=== PATIENT | male | born 1945 | race Caucasian/White ===

== ENCOUNTER 2023-09-15 05:57 | Day surgery (SDC) | payer MEDICARE, OTHER ==
[2023-09-14 11:06] LABS: BASOPHILS # (AUTO) 0.1 X10'3 (0-0.2); BASOPHILS % (AUTO) 0.7 % (0-1); EOSINOPHILS # (AUTO) 0.1 X10'3 (0-0.9); EOSINOPHILS % (AUTO) 1.8 % (0-6); HEMATOCRIT 47.2 % (42.0-52.0); HEMOGLOBIN 15.5 g/dl (14.0-17.9); LYMPHOCYTES # (AUTO) 1.6 X10'3 (1.1-4.8); LYMPHOCYTES % (AUTO) 24.1 % (21-51); MEAN CORPUSCULAR HEMOGLOBIN 28.3 PG (27.0-31.0); MEAN CORPUSCULAR HGB CONC 32.9 g/dL (33.0-36.5); MEAN PLATELET VOLUME 8.6 FL (7.4-10.4); MONOCYTES # (AUTO) 1.2 X10'3 (0-0.9); MONOCYTES % (AUTO) 16.9 % (2-12); NEUTROPHILS # (AUTO) 3.9 X10'3 (1.8-7.7); NEUTROPHILS % (AUTO) 56.5 % (42-75); PLATELET COUNT 145 X10'3 (140-440); RED BLOOD COUNT 5.48 X10'6 (4.70-6.10); RED CELL DISTRIBUTION WIDTH 13.4 % (11.5-14.5); WHITE BLOOD COUNT 6.8 X10'3 (4.5-11.0)
[2023-09-14 11:11] LABS: ALBUMIN 3.6 G/DL (3.4-5.0); ANION GAP 6 (8-16); BLOOD UREA NITROGEN 18 MG/DL (7-18); BUN/CREATININE RATIO 15.5 (10.0-20.0); CALCIUM 9.3 MG/DL (8.5-10.1); CHLORIDE 106 MMOL/L (99-107); CREATININE 1.16 MG/DL (0.60-1.10); GLUCOSE 75 MG/DL (70-104); POTASSIUM 3.9 MMOL/L (3.5-5.1); SODIUM 142 MMOL/L (135-145); TOTAL CARBON DIOXIDE 29.8 MMOL/L (24-32); eGFR 61 ML/MIN
[2023-09-14 11:52] LABS: TOTAL CELLS COUNTED 100
[2023-09-14 11:53] LABS: PLATELET ESTIMATE NORMAL
[2023-09-14 11:58] LABS: APTT 26 SECONDS (22-32); INR 1.1 INR; PROTHROMBIN TIME 11.4 SECONDS (9.0-12.0)
[2023-09-15] VITALS (14 sets, daily range): BP systolic 102–134; BP diastolic 46–61; PULSE 53–65; RESP 10–17; TEMP 97.8; O2SAT 94–97
[~2023-09-15] VITALS: Ht 175.3 cm; Wt 74.7 kg
[~2023-09-15 05:57] MED LIST: ATOR10TA70 PO; CLOP75TA15 PO; LOP25T PO; PANT-47 PO; SILO8CAP2 PO
[2023-09-15] MEDS: diphenhydrAMINE 25mg capsule PO PRN (07:12)
[2023-09-15] MEDS: normal saline 1,000 ML IV SCH (07:13)
[2023-09-15] MEDS: LORazepam 0.5 MG tablet PO PRN (07:13)
[2023-09-15] MEDS ORDERED: OMEP20CA16 PO (07:35)
[2023-09-15] MEDS ORDERED: FLUT16SP2 BOTHNARES (07:35)
[2023-09-15] MEDS ORDERED: KEN0.1O TOP (07:35)
[2023-09-15] MEDS ORDERED: OMEG-43 PO (07:35)
[2023-09-15] MEDS ORDERED: CHOL100046 PO (07:35)
[2023-09-15] MEDS ORDERED: ASPI-1265 PO (07:35)
[2023-09-15] MEDS ORDERED: ATOR20TA66 PO (07:35)
[2023-09-15] MEDS ORDERED: NITR0.4T48 (07:35)
[2023-09-15] MEDS ORDERED: iohexol 350 MG/ML 50ML vial IV ONE (07:43)
[2023-09-15] MEDS ORDERED: verapamil 2.5 mg/ml inj IV ONE (07:43)
[2023-09-15] MEDS ORDERED: LIDOcaine 1% (10mg/ml) 2ml vial ONE (07:43)
[2023-09-15] MEDS ORDERED: heparin 1,000unit/ml 10ml vial 10 ML ONE (07:43)
[2023-09-15] MEDS ORDERED: midazolam 1 mg/ML 2ml injection ONE (07:43)
[2023-09-15] MEDS ORDERED: fentaNYL/PF 50MCG/1 ML 2ML syringe ONE (07:43)
[2023-09-15] MEDS ORDERED: nitroGLYCERIN 500mcg/5mL D5W 5 ML IV ONE (07:44)
[2023-09-15] MEDS ORDERED: iohexol 350MG/ML 100ml bottle IV ONE ×2 (07:44→08:44)
[2023-09-15] MEDS ORDERED: pneumococcal 23-VAL P-sac vacc 25 mcg/0.5ml vial IMVAC ONE (08:15)
[2023-09-15] MEDS ORDERED: normal saline 1,000 ML IV ONE (09:44)
[2023-09-15 15:28] LABS: ISTAT Hct ART 44 %PCV (42-52); ISTAT O2 SATURATION ARTERIAL 91 % (95-98); ISTAT SOURCE ART
[2023-09-16 05:56] LABS: ISTAT HGB MIX 14.6 g/dl (14.0-17.9); ISTAT Hct MIX 43 %PCV (42-52); ISTAT O2 SATURATION MIX VENOUS 68 % (60-80); ISTAT SOURCE VEN
== END 2023-09-15 15:00 | disposition home or self-care (01) ==
LOC: SSTAY O 05:57
PROVIDERS: ATTEND Internal Medicine Cardiovascular Disease
DX: I35.0 Nonrheumatic aortic (valve) stenosis (principal); I25.10 Atherosclerotic heart disease of native coronary artery without angina pectoris; E78.5 Hyperlipidemia, unspecified; Z79.82 Long term (current) use of aspirin; Z79.899 Other long term (current) drug therapy; Z95.5 Presence of coronary angioplasty implant and graft; Z23 Encounter for immunization; Z90.89 Acquired absence of other organs; Z98.890 Other specified postprocedural states; Z80.1 Family history of malignant neoplasm of trachea, bronchus and lung
CPT/HCPCS: 76937; 80048; 82803; 85014; 85025; 85610; 85730; 90732; 93005; 93460; 99152; 99153; A6258; J1644; J2250; J3010; J3490; J7030; Q0163; Q9967; 85007; A6402; C1725; C1751; C1894

== ENCOUNTER 2024-09-19 08:59 | Day surgery (SDC) | payer MEDICARE, OTHER ==
[2024-09-18 13:35] LABS: BASOPHILS # (AUTO) 0.1 X10'3 (0-0.2); BASOPHILS % (AUTO) 0.9 % (0-1); EOSINOPHILS # (AUTO) 0.1 X10'3 (0-0.9); EOSINOPHILS % (AUTO) 1.8 % (0-6); HEMATOCRIT 44.5 % (42.0-52.0); HEMOGLOBIN 14.6 g/dl (14.0-17.9); LYMPHOCYTES # (AUTO) 1.8 X10'3 (1.1-4.8); LYMPHOCYTES % (AUTO) 27.8 % (21-51); MEAN CORPUSCULAR HEMOGLOBIN 27.6 PG (27.0-31.0); MEAN CORPUSCULAR HGB CONC 32.7 g/dL (33.0-36.5); MEAN CORPUSCULAR VOLUME 84.4 FL (78-98); MEAN PLATELET VOLUME 8.7 FL (7.4-10.4); MONOCYTES % (AUTO) 15.2 % (2-12); NEUTROPHILS # (AUTO) 3.6 X10'3 (1.8-7.7); NEUTROPHILS % (AUTO) 54.3 % (42-75); PLATELET COUNT 162 X10'3 (140-440); RED BLOOD COUNT 5.27 X10'6 (4.70-6.10); RED CELL DISTRIBUTION WIDTH 13.6 % (11.5-14.5); WHITE BLOOD COUNT 6.6 X10'3 (4.5-11.0)
[2024-09-18 13:52] LABS: APTT 26 SECONDS (22-32); INR 1.1 INR; PROTHROMBIN TIME 11.1 SECONDS (9.0-12.0)
[2024-09-18 13:58] LABS: ALBUMIN 3.5 G/DL (3.4-5.0); ANION GAP 4 (8-16); BLOOD UREA NITROGEN 16 MG/DL (7-18); BUN/CREATININE RATIO 14.4 (10.0-20.0); CALCIUM 8.9 MG/DL (8.5-10.1); CHLORIDE 107 MMOL/L (99-107); CREATININE 1.11 MG/DL (0.60-1.10); GLUCOSE 72 MG/DL (70-104); POTASSIUM 4.2 MMOL/L (3.5-5.1); SODIUM 143 MMOL/L (135-145); TOTAL CARBON DIOXIDE 31.6 MMOL/L (24-32); eGFR 64 ML/MIN
[2024-09-18 14:50] LABS: PLATELET ESTIMATE NORMAL; TOTAL CELLS COUNTED 100
[~2024-09-19] VITALS: Ht 175.3 cm; Wt 73.2 kg
[2024-09-19] VITALS (12 sets, daily range): BP systolic 130–179; BP diastolic 56–82; PULSE 49–78; RESP 12–18; TEMP 97.4; O2SAT 96–100
[~2024-09-19 08:59] MED LIST changes: +ASPI-1265 PO; -ATOR10TA70 PO; +ATOR20TA66 PO; +CHOL100046 PO; -CLOP75TA15 PO; +FLUT16SP2 BOTHNARES; +KEN0.1O TOP; +NITR0.4T48; +OMEG-43 PO; +OMEP20CA16 PO; -PANT-47 PO
--- NOTE | 2024-09-19 09:25 | ELECTROCARDIOGRAPH REPORT ---
[facility] Test Date: 2024-09-19 Test Time: 09:22:53 Pat Name: BOLA PHIPPS Department: [facility] Patient ID: [facility]-[id number] Room: Gender: M Head Of Digital: : 1945 Requested By: SARAN PRECIADO Order Number: [id number] Reading MD: Dr. MICHAEL Preciado Measurements Intervals [place] Rate: 49 P: 86 CO: 187 QRS: 86 QRSD: 105 T: 49 QT: 441 QTc: 399 Interpretive Statements Sinus bradycardia Borderline right axis deviation Probable left ventricular hypertrophy ST elevation, consider anterior injury Electronically Signed On 09-19-2024 17:37:[address] MICHAEL Preciado Please click the below link to view image of tracing.
[2024-09-19] MEDS ORDERED: METO25TA6 PO (09:39)
[2024-09-19] MEDS ORDERED: CALC-1370 PO (09:47)
[2024-09-19] MEDS ORDERED: DOCU100C40 PO (09:47)
[2024-09-19] MEDS ORDERED: KEN0.1O TOP (09:47)
[2024-09-19] MEDS ORDERED: KETOCONAZOLE ×2 (09:47)
[2024-09-19] MEDS ORDERED: VITAMIN C GUMMIES PO (09:47)
[2024-09-19] MEDS ORDERED: iohexol 350 MG/ML 50ML vial IV ONE (10:00)
[2024-09-19] MEDS ORDERED: LIDOcaine 1% (10mg/ml) 2ml vial ONE (10:00)
[2024-09-19] MEDS ORDERED: nitroGLYCERIN 500mcg/5mL D5W 5 ML IV ONE (10:00)
[2024-09-19] MEDS ORDERED: iohexol 350MG/ML 100ml bottle IV ONE (10:00)
[2024-09-19] MEDS ORDERED: verapamil 2.5 mg/ml inj IV ONE (10:00)
[2024-09-19] MEDS ORDERED: heparin 1,000unit/ml 10ml vial 10 ML ONE (10:00)
[2024-09-19] MEDS: diphenhydrAMINE 25mg capsule PO PRN (10:11)
[2024-09-19] MEDS: normal saline 1,000 ML IV SCH (10:12)
[2024-09-19] MEDS: LORazepam 0.5 MG tablet PO PRN (10:12)
[2024-09-19] MEDS ORDERED: midazolam 1 mg/ML 2ml injection ONE (10:16)
[2024-09-19] MEDS ORDERED: fentaNYL/PF 50MCG/1 ML 2ML syringe ONE (10:16)
[2024-09-19] MEDS ORDERED: LIDOcaine 1% 30ml preserv. free vial ONE (11:06)
[2024-09-19] MEDS ORDERED: heparin 1,000 UNITS/NS 500ml 500 ML ONE (11:07)
[2024-09-19] MEDS ORDERED: hydrALAZINE 20mg/ml inj. ONE (11:52)
[2024-09-19 11:53] LABS: ISTAT HGB ART 14.6 g/dl (14.0-17.9); ISTAT Hct ART 43 %PCV (42-52); ISTAT O2 SATURATION ARTERIAL 90 % (95-98); ISTAT SOURCE ART
[2024-09-19] MEDS ORDERED: normal saline 1000ml 1,000 ML IV SCH (12:30)
[2024-09-19] MEDS ORDERED: HYDROcodone/acetaminophen 5mg/325mg tablet PO PRN (13:50)
[2024-09-19] MEDS: HYDROcodone/acetaminophen 10/325mg tab PO PRN (13:56)
[2024-09-20 06:27] LABS: ISTAT HGB MIX 14.6 g/dl (14.0-17.9); ISTAT Hct MIX 43 %PCV (42-52); ISTAT O2 SATURATION MIX VENOUS 62 % (60-80); ISTAT SOURCE BLNK
--- NOTE | 2024-09-20 08:37 | CARDIOLOGY REPORT ---
DATE OF SERVICE: 09/19/2024 DICTATING PHYSICIAN: MICHAEL Ely MD CARDIAC CATH EVALUATION GENDER: Male. AGE: 79 years. HEIGHT: 175 cm. WEIGHT: 73.2 kg. BODY SURFACE AREA: 1.88 cm2. PRIMARY PHYSICIAN: Dr. Carlos Michelle [place], [place] BACK END ARCHITECT: MICHAEL Ely MD INDICATION: The patient is an 79-year-old male with history of hyperlipidemia, carotid disease, CAD, status post stenting with aortic stenosis. The patient had PTCA stenting of the OM with 2.5 x 12 CHUN stent back on 03/26/2015. The patient's echocardiogram from 08/16/2024, EF of 60-65%, aortic valve area 0.8 cm2 with peak/mean gradient greater than 67/38 mmHg. After discussing risks, benefits and alternative options, the patient prefers to have definitive coronary angiography. Risks, benefits, and alternative options were discussed, informed consent was obtained. PROCEDURE TECHNIQUE: Right radial access was tried, but radial . Ultrasound did not show a good-sized artery, hence the access was not even attempted. Changed to right femoral access. Successful femoral arterial access. Post-procedure access site hemostasis secured with manual compression Followed by [facility] The patient tolerated the procedure well. The patient had a right heart catheterization, right antecubital approach, a 6-Urdu sheath. Post-procedure access site hemostasis secured with manual compression. the patient tolerated the procedure well. COMPLICATIONS: None. PROCEDURES DONE: * Ultrasound-guided right femoral artery visualization and access. * Right heart catheterization. * Left heart catheterization. * LVG. * Coronary cineangiography. * Right femoral arteriogram. * Conscious sedation time of 60 minutes. FINDINGS: HEMODYNAMICS: Aortic systolic 121, diastolic 39, aortic mean pressure of 60 mmHg, LVEDP of 23 mmHg. There is a mean gradient of 28.7 mmHg across the aortic valve. Aortic valve area 0.87 cm2. LEFT VENTRICULOGRAM: Overall, left ventricular systolic function normal with LV ejection fraction of 65-70%. CORONARY CINEANGIOGRAPHY: Left main coronary artery is a large caliber vessel arising from the left aortic sinus with minimal irregularities. LAD is a medium caliber vessel arising at the bifurcation of the left main coronary artery and courses through the anterior intraventricular groove and ends by wrapping around the apex. The LAD has areas of 10-20% narrowing from its diagonal. OM is 2.25 mm caliber vessel with mild luminal irregularities. Diagonal 2 is 1.5 mm caliber, ostial 30% narrowing. Circumflex artery is a large caliber dominant vessel arising at the bifurcation of the left main coronary artery, courses through the left AV groove. Circumflex artery has proximal one-third of 60% narrowing, which is not significantly different from the prior angiogram about a year ago. OM1 is 2 mm caliber vessel. OM1 stent is widely patent. After that, OM divides into 2 divisions and the inferior division has about 40% narrowing. After this, the circumflex artery continues in left AV groove. Stent in the OM one is patent.. OM2 is 1.75. After that, it continues as PDA. , which is 2 mm caliber with mild luminal irregularities. Right coronary artery is a small nondominant vessel arising from right coronary sinus and better engaged with JR4 catheter and has about nondominant proximal RCA, has mild ventricularization of the waveform when engaged and has about proximal 50% narrowing. IMPRESSION: An 79-year-old male with LV ejection fraction of 65%. LVEDP of 23 mmHg. There is a mean gradient of 28.7 mmHg across the aortic valve with aortic valve area 0.87 cm2. Left main normal. LAD has a 10-20% narrowing. Mid proximal 60% narrowing. Stent in the OM1 is widely patent. Inferior OM1 has 30% narrowing. Nondominant circumflex approximately 50% narrowing. RECOMMENDATIONS: Recommended continued aggressive coronary risk factor modification, namely low-fat, low-cholesterol diet, maintaining ideal body weight, keeping LDL less than 70 mg, regular exercise program. Option of continued observation versus referral to TAVR. Risks, benefits, and alternative options were discussed with the patient. In view of absence of, angina CHF or syncope, It is mutually agreed to re-evaluate his aortic valve in three months with an echocardiogram. MICHAEL Ely MD TID: [id number] RECEIPT: [id number] CORWIN/MADELINE/TOMEKA cc: Carlos Michelle MD [facility]
== END 2024-09-19 18:45 | disposition home or self-care (01) ==
LOC: SSTAY O 08:59
PROVIDERS: ATTEND Internal Medicine Cardiovascular Disease
DX: I35.0 Nonrheumatic aortic (valve) stenosis (principal); E78.5 Hyperlipidemia, unspecified; I25.10 Atherosclerotic heart disease of native coronary artery without angina pectoris; I65.23 Occlusion and stenosis of bilateral carotid arteries; K21.9 Gastro-esophageal reflux disease without esophagitis; K76.0 Fatty (change of) liver, not elsewhere classified; Z79.01 Long term (current) use of anticoagulants; Z98.890 Other specified postprocedural states; Z80.1 Family history of malignant neoplasm of trachea, bronchus and lung; Z79.899 Other long term (current) drug therapy
CPT/HCPCS: 36415; 80048; 82803; 85014; 85025; 85610; 85730; 93005; 93460; 99152; 99153; A6258; A6402; C1725; C1751; C1894; J0360; J1644; J2003; J2250; J3010; J3490; J7030; Q0163; Q9967; Z7610; 85007; A6449

== ENCOUNTER → 2024-10-05 | Outpatient (CLI) | payer MEDICARE, OTHER ==
[~2024-10-05] MED LIST changes: +CALC-1370 PO; +DOCU100C40 PO; +IODIXANOL 320 MG/ML INFUS..BTL 100ML IV ONE; +KETOCONAZOLE; -LOP25T PO; +METO25TA6 PO; +VITAMIN C GUMMIES PO
[2024-10-05 10:09] LABS: BASOPHILS # (AUTO) 0.1 X10'3 (0-0.2); BASOPHILS % (AUTO) 0.9 % (0-1); EOSINOPHILS # (AUTO) 0.1 X10'3 (0-0.9); EOSINOPHILS % (AUTO) 1.4 % (0-6); HEMATOCRIT 44.3 % (42.0-52.0); HEMOGLOBIN 14.8 g/dl (14.0-17.9); LYMPHOCYTES # (AUTO) 1.4 X10'3 (1.1-4.8); LYMPHOCYTES % (AUTO) 22.4 % (21-51); MEAN CORPUSCULAR HEMOGLOBIN 28.3 PG (27.0-31.0); MEAN CORPUSCULAR HGB CONC 33.3 g/dL (33.0-36.5); MEAN CORPUSCULAR VOLUME 85.1 FL (78-98); MEAN PLATELET VOLUME 8.4 FL (7.4-10.4); MONOCYTES # (AUTO) 0.9 X10'3 (0-0.9); MONOCYTES % (AUTO) 14.7 % (2-12); NEUTROPHILS # (AUTO) 3.9 X10'3 (1.8-7.7); NEUTROPHILS % (AUTO) 60.6 % (42-75); PLATELET COUNT 149 X10'3 (140-440); RED BLOOD COUNT 5.21 X10'6 (4.70-6.10); RED CELL DISTRIBUTION WIDTH 13.6 % (11.5-14.5); WHITE BLOOD COUNT 6.4 X10'3 (4.5-11.0)
[2024-10-05 10:22] LABS: APTT 27 SECONDS (22-32); INR 1.1 INR
[2024-10-05 10:35] LABS: ALANINE AMINOTRANSFERASE 23 U/L (12-78); ALBUMIN 3.5 G/DL (3.4-5.0); ALBUMIN/GLOBULIN RATIO 0.9 (1.1-1.5); ALKALINE PHOSPHATASE 83 IU/L (46-116); ANION GAP 6 (8-16); ASPARTATE AMINO TRANSFERASE 17 U/L (10-37); BILIRUBIN,TOTAL 0.6 MG/DL (0.1-1.0); BLOOD UREA NITROGEN 15 MG/DL (7-18); BUN/CREATININE RATIO 14.6 (10.0-20.0); CALCIUM 9.2 MG/DL (8.5-10.1); CHLORIDE 106 MMOL/L (99-107); CREATININE 1.03 MG/DL (0.60-1.10); GLUCOSE 76 MG/DL (70-104); POTASSIUM 4.4 MMOL/L (3.5-5.1); PRO BRAIN NATRIURETIC PEPTIDE 216 PG/ML (0-450); SODIUM 143 MMOL/L (135-145); TOTAL CARBON DIOXIDE 31.3 MMOL/L (24-32); TOTAL PROTEIN 7.5 G/DL (6.4-8.2); eGFR 69 ML/MIN
--- NOTE | 2024-10-05 11:14 | RADIOLOGY REPORT ---
EXAM: DI CHEST,TWO VIEWS CLINICAL HISTORY: TAVR; pain COMPARISON: None TECHNIQUE: Frontal and lateral view of the chest was obtained FINDINGS: Lines and Tubes: None Lungs: No focal consolidation. Pleura: No effusion. No pneumothorax. Cardiomediastinal contours: Unremarkable. Atherosclerotic vascular calcifications of the thoracic ao rta are noted. Bones: No acute osseous abnormality. IMPRESSION: No acute cardiopulmonary disease.
--- NOTE | 2024-10-05 11:46 | VASCULAR REPORT ---
Indication: Preoperative Technique: Real-time ultrasound images of the neck vessels with elam-scale, color and wave Doppler we re obtained. Comparison: None Findings: Moderate to severe plaque in the carotid bulbs more pronounced in the left carotid bulb. The following peak systolic velocities were recorded in cm/sec: Right internal carotid: 144 Right common carotid: 88 Right external carotid: 122 Right internal/common carotid ratio: 2.2 Left internal carotid: 356 Left common carotid: 102 Left external carotid: 165 Left internal/common carotid ratio: 5 Right vertebral artery: Patent with normal antegrade direction of flow. Left vertebral artery: Patent with normal antegrade direction of flow. Impression: 1. High-grade/severe stenosis of the left internal carotid artery, greater than 70% by velocity crite edmund. Severely elevated velocity in the left internal carotid artery consistent high-grade/severe sten osis, likely greater than 90. Recommend CT angiogram of the neck to evaluate. Severe plaque at the le ft carotid bulb 2. Moderate grade stenosis of the right internal carotid artery, 50-69% stenosis by velocity criteria Recommend CT angiogram of the neck to further evaluate.
--- NOTE | 2024-10-05 19:09 | RADIOLOGY REPORT ---
Procedure: CT CTA TAVR Reason for study/Clinical History: Chest pain, evaluate for dissection. Comparison Study: None Exam Date: 10/05/2024 10:56 AM TECHNIQUE: Multiplanar reformatted images were generated from volumetric data acquired on a multidetector CT [facility]. Cardiac gating was utilized. Arterial phase images were obtained through the chest, abdomen and pelvis following intravenous administration of contrast material. 125 mL visipaque [address] dose reduction techniques were utilized. 3-D reconstructions were performed on an independent work station. Radiation Dose Information: CT Dose: CTDI volume is 74 mGy. Dose-length product is 2265 mGy*cm FINDINGS: Vascular: Aortic measurements: Aortic annulus: 28.6 x 20.8 mm Sinus of valsalva: right cusp 30.2 mm, left cusp 34.1 mm, non-coronary cusp 32.3 mm Right coronary distance: 22.2 Left coronary distance: 17.6 ST junction 28.1 mm Ascending aorta 31.9 mm Aortic arch 23.8 mm Descending aorta 22.5 mm Aortic hiatus 20.1 mm Upper abdominal aorta 23.4 mm Minimal abdominal aorta 14 mm Right common iliac 9.26 mm, tortuosity index 1.11 Left common iliac 8.56 mm, tortuosity index 1.05 There is normal caliber of aorta. No aortic dissection. Aortic arch anatomy is conventional. There is conventional coronary artery anatomy. Scattered calcified atherosclerotic plaque. High-grade stenos is of the superior mesenteric artery. Zsld-jf-uxonqovu stenoses of the celiac and right renal arterie s. No central pulmonary embolism. There is normal dimension of the main pulmonary artery. Heart is normal. There are no intracardiac filling defects. No pericardial effusion. Mediastinum: There is no significant intrathoracic or axillary lymphadenopathy by CT size criteria. Lungs: Atelectasis and scarring in the lung bases. Pleura: No effusion or pneumothorax. Chest wall: No acute abnormality. Abdomen and Pelvis: Liver: Normal in appearance. Gallbladder: Normal in appearance. Spleen: Normal in appearance. Pancreas: Normal in appearance. Adrenals: Normal in appearance. Kidneys: Left renal cysts. Bowel: Normal in appearance. Peritoneum: No free air or free fluid. Lymph nodes: No lymphadenopathy by CT size criteria. Pelvic structures: Prostatomegaly. Bones: Degenerative changes in the spine and hips. IMPRESSION: 1. TAVR planning with vascular measurements as described above. 2. 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 Woke-er-tleksqbn stenoses of the celiac an d right renal arteries. HS:Y
== END | disposition home or self-care (01) ==
LOC: RAD 09:33
PROVIDERS: ATTEND Internal Medicine Cardiovascular Disease
DX: I65.23 Occlusion and stenosis of bilateral carotid arteries (principal); I35.0 Nonrheumatic aortic (valve) stenosis; R06.02 Shortness of breath; I65.29 Occlusion and stenosis of unspecified carotid artery; K55.069 Acute infarction of intestine, part and extent unspecified; I77.4 Celiac artery compression syndrome; I70.1 Atherosclerosis of renal artery; J98.4 Other disorders of lung
CPT/HCPCS: 36415; 71046; 71275; 74174; 75572; 80053; 83880; 85025; 85610; 85730; 93880; Q9967

== ENCOUNTER 2024-10-25 08:10 | Inpatient (IN) | payer MEDICARE, OTHER ==
--- NOTE | 2024-10-18 15:28 | CONSULTATION REPORT ---
Consult Providers to CC ~ History of Present Illness Primary Medical Doctor: Dr. Stephens Interventional Cardiology Reason for Admit\Complaint: Exertional angina, dyspnea on exertion, severe aortic stenosis History of Present Illness The patient is an 79-year-old male known to the Cardiology Service from previous history of coronary artery disease with previous PTCA and stent in 2014 as well as history of worsening exertional fatigue and chest discomfort consistent with crescendo type angina with physical activity. The patient was seen by Cardiology on follow-up as an outpatient and then admitted via the TAVR Clinic for further workup and management recent 2D echo revealed an ejection fraction of 65% with aortic valve area 0.8 and a mean gradient of 67 with a peak velocity of 4.1 very mild aortic insufficiency the patient also underwent a left and right heart catheterization this revealed evidence of nonobstructive coronary artery disease with patent stent on the circumflex system, and a cardiac index of 2.07 and a cardiac output of 3.9 by the Rebecca equation the patient has been considered for possible aortic valve implantation by means of TAVR and and has undergone an extensive cardiac workup including CT angiography of the chest which has revealed a sinus tubular junction of 27 mm left coronary height 17 mm right coronary height of 22 mm left coronary sinus of Valsalva of 33.8 mm right coronary sinus of Valsalva 30 0.1 mm non coronary cusp and 32.5 mm annulus diameter is 450.8 mm2 he has thoracic and abdominal aorta showed mild atherosclerotic changes both left and right common femoral arteries are of good caliber for access averaging 6.9 on the left and 6.7 on the right, a cardiac surgery evaluation was requested for further recommendations. Allergies: Coded Allergies: No Known Allergies (Unverified , 03/26/15) Home Medications Home Medications Active Reported Calcium Gummies (Calcium Phosphate Trib/Vit D3) 250MG-12.5 Tab.chew 1 Each PO DAILY Kenalog 0.1% Crm* (Triamcinolone Acetonide) 1 Applic Tube 1 Applic TOP [Ketoconizole Cream] [Ketoconizole Shampoo] Docusate Sodium 100 Mg Caps 1 Cap PO DAILY [Vitamin C Gummies] 250 Mg PO DAILY Metoprolol Tartrate 25 Mg Tablet 1 Tab PO DAILY Vitamin D3 (Cholecalciferol (Vitamin D3)) 25 Mcg (1000 Unit) Capsule 1 Cap PO BID 30 Days Fish Oil 1,000 Mg Softgel ([place]-3/Dha/Epa/Fish Oil) 250 Mg-500 Mg-1,000 Mg Capsule 1 Each PO BID Aspirin 81 Mg Tab.chew 1 Tab PO DAILY 30 Days Flonase (Fluticasone Propionate) 16 Gm Elrama.susp 2 Sprays BOTHNARES DAILY 30 Days Atorvastatin Calcium 20 Mg Tablet 1 Tab PO DAILY Nitroglycerin 0.4 Mg Tab.subl Omeprazole 20 Mg Capsule.dr 1 Cap PO DAILY Rapaflo (Silodosin) 8 Mg Capsule 1 Cap PO DAILY Past Medical History Past Medical History History of calcific aortic stenosis History of PTCA and stent an 03/26/2015 History of osteoarthritis and degenerative joint disease cervical spine Past history of rheumatic fever History of fatty liver History of hemochromatosis BPH He is an ex smoker quit at the age of 34 Past Surgical History Surgical History Comment Prior PCI with stenting of coronary artery Family History Family History: (Cancer) Malignant carcinoid tumor FATHER, Onset:60 years & older No Family History of: (CABG) Coronary artery bypass grafting (CAD) Coronary arteriosclerosis (CHF) Congestive heart failure (COPD) Chronic obstructive lung disease (CVA) Cerebrovascular accident (DM Type 2) Diabetes mellitus type 2 (DM Type1) Diabetes mellitus type 1 (MS) Myocardial infarction (PVD) Peripheral vascular disease (TIA) Transient ischemic attack Alzheimer's disease Aortic aneurysm Asthma Cardiac arrest Hypercholesterolemia ROS ROS Significant for cardiopulmonary: Shortness of breath with physical activity as well as angina with exertion, occasional palpitations. Exam Vitals: Weight: 74.7 kg Height: 69 in Temperature: 96.7 F Heart rate: 54 beats per minute Respiratory rate: 14 respiration per minute Pulse oximeter: 98% on room air Blood pressure: 138/51 on the left arm General: He is alert responsive and oriented comes accompanied by his without any acute distress at time of the visit appeared to be in good spirits, his main complaint is his lack of stamina and exertional angina, he is somewhat worried about his upcoming anniversary trip they had scheduled on his no certain whether or not he should have his intervention prior or after the trip. HEENT: No discharge or rhinorrhea noted at the time of the visit Neck: Neck appears supple, bilateral carotid pulses, no palpable masses. No thrills or bruits noted. Chest: Bilateral expansion, no acute distress, mild gynecomastia. Lungs: Bilateral air entry some basilar rhonchis no wheezing or rales noted. Heart: S1-S2 regular, no S3, there is a systolic murmur of on the left parasternal region 2nd intercostal space four to 5/6 radiated to the precordium. Abdomen: Soft nontender bowel sounds are present no palpable masses. No pulsatile masses noted. Extremities: Soft, nontender, mild edema in both lower extremities but no evidence of DVT. Pulses are palpable in all four extremities capillary refill is present. Neurological: No evidence of any focal deficits, patient is able to communicate with clears patient understanding. Cranial nerves within normal limits. Diagnostic Data Diagnostic Data: Lab data 10/05/2024 GFR of 69, creatinine 1.03, sodium 143, H and H14.8 over 44.3 WBC count 6.4 platelet count of 149 Problems: (1) Aortic stenosis Status: Chronic (2) Hyperlipidemia Status: Chronic (3) Chronic hypertension Status: Chronic (4) LVH (left ventricular hypertrophy) Status: Chronic (5) CAD (coronary artery disease), [place] coronary artery Status: Chronic Assessment & Plan: 79-year-old male with history of worsening symptomatic calcific aortic stenosis with multiple comorbidities in need of aortic valve replacement, is a good candidate for percutaneous transcatheter trans aortic valve implantation by means of TAVR, his operative mortality per the STS database is 1.85% his morbidity and mortality rates 7.6% and his risk of major stroke is 5.38% his risk of renal failure 0.95% risk of prolonged ventilation is 2.5%. I have discussed with the patient and the patient's at the bedside the nature of his condition for further workup and intervention as well as the risks and benefits the patient and family have agreed that we will schedule as an outpatient likely next week. All their questions were answered to their satisfaction. (6) Advanced age Status: Chronic Visit Coding Cardiology Date of Service: Oct 18, 2024 Billing Provider: LESIA MANDUJANO MD Cardiology Evaluation and [place]: [id number] INP/OBS CARE (High) Outpatient Consult Visit: [id number] - OP CONSULT 55+ MIN Problem Qualifiers (1) Aortic stenosis: Cardiac valve disease etiology: etiology unspecified Qualified Codes: I35.0 - Nonrheumatic aortic (valve) stenosis (2) Hyperlipidemia: Hyperlipidemia type: unspecified Qualified Codes: E78.5 - Hyperlipidemia, unspecified (3) CAD (coronary artery disease), [place] coronary artery: Circle vs. transplanted heart: [place] heart LESIA MANDUJANO MD Oct 18, 2024 15:28
[2024-10-22 11:43] LABS: BASOPHILS # (AUTO) 0.1 X10'3 (0-0.2); BASOPHILS % (AUTO) 0.8 % (0-1); EOSINOPHILS # (AUTO) 0.1 X10'3 (0-0.9); EOSINOPHILS % (AUTO) 1.8 % (0-6); LYMPHOCYTES # (AUTO) 1.7 X10'3 (1.1-4.8); LYMPHOCYTES % (AUTO) 22.9 % (21-51); MEAN CORPUSCULAR HEMOGLOBIN 28.1 PG (27.0-31.0); MEAN CORPUSCULAR HGB CONC 32.7 g/dL (33.0-36.5); MEAN CORPUSCULAR VOLUME 85.8 FL (78-98); MEAN PLATELET VOLUME 8.6 FL (7.4-10.4); MONOCYTES # (AUTO) 1.2 X10'3 (0-0.9); MONOCYTES % (AUTO) 16.4 % (2-12); NEUTROPHILS # (AUTO) 4.3 X10'3 (1.8-7.7); NEUTROPHILS % (AUTO) 58.1 % (42-75); PRE OP HEMATOCRIT 46.3 % (42.0-52.0); PRE OP HEMOGLOBIN 15.1 g/dL (14.0-17.9); PRE OP PLATELET COUNT 159 X10'3 (140-440); PRE OP WHITE BLOOD COUNT 7.4 10'3 (4.8-10.8); RED BLOOD COUNT 5.39 X10'6 (4.70-6.10); RED CELL DISTRIBUTION WIDTH 13.6 % (11.5-14.5)
--- NOTE | 2024-10-22 11:43 | ELECTROCARDIOGRAPH REPORT ---
[facility] Test Date: 2024-10-22 Test Time: 11:39:29 Pat Name: BOLA PHIPPS Department: PRE/OP CARDIOLOGY Patient ID: [facility]-[id number] Room: Gender: M Magnetic Resonance Technologist: EBONY : 1945 Requested By: DIMITRIOS PERKINS Order Number: [id number] Reading MD: Dr. Aime Garcia Measurements Intervals [place] Rate: 54 P: 77 CO: 175 QRS: 80 QRSD: 107 T: 72 QT: 417 QTc: 396 Interpretive Statements Sinus bradycardia Probable left atrial enlargement Borderline ST elevation, anterior leads Electronically Signed On 10-23-2024 8:14:[address] Aime Garcia Please click the below link to view image of tracing.
[2024-10-22 11:51] LABS: BILIRUBIN,URINE NEGATIVE (Neg); CLARITY,URINE CLEAR (Clear); COLOR,URINE YELLOW (Yellow); GLUCOSE, URINE NEGATIVE (Neg); KETONES,URINE NEGATIVE (Neg); LEUKOCYTE ESTERASE ,URINE NEGATIVE (Neg); NITRITES, URINE NEGATIVE (Neg); OCCULT BLOOD,URINE NEGATIVE (Neg); PROTEIN,URINE NEGATIVE (Neg); UROBILINOGEN,URINE 0.2 E.U/dL (0.2-1.0)
[2024-10-22 11:55] LABS: UA COLLECTION TYPE CLN CATCH MIDSTREAM
[2024-10-22 11:55] LABS: PRE OP INR 1.1 INR; PRE OP PROTIME 10.8 SECONDS (9.0-12.0)
[2024-10-22 12:06] LABS: ALBUMIN 3.6 G/DL (3.4-5.0); ALBUMIN/GLOBULIN RATIO 0.8 (1.1-1.5); ALKALINE PHOSPHATASE 82 IU/L (46-116); BLOOD UREA NITROGEN 15 MG/DL (7-18); BUN/CREATININE RATIO 13.4 (10.0-20.0); CALCIUM 9.1 MG/DL (8.5-10.1); CHLORIDE 104 MMOL/L (99-107); CREATININE 1.12 MG/DL (0.60-1.10); PRE OP ALT 13 U/L (30-65); PRE OP ANION GAP 10 (8-16); PRE OP AST 19 U/L (10-37); PRE OP BILIRUB, TOTAL 0.6 MG/DL (0.0-1.0); PRE OP GLUCOSE 93 MG/DL (70-104); PRE OP POTASSIUM 4.2 MMOL/L (3.4-5.1); PRE OP SODIUM 142 MMOL/L (135-145); PRO BRAIN NATRIURETIC PEPTIDE 189 PG/ML (0-450); TOTAL CARBON DIOXIDE 28.4 MMOL/L (24-32); TOTAL PROTEIN 7.9 G/DL (6.4-8.2); eGFR 63 ML/MIN
[2024-10-22 12:18] LABS: PLATELET ESTIMATE NORMAL; TOTAL CELLS COUNTED 100
[2024-10-25] VITALS (26 sets, daily range): BP systolic 130–148; BP diastolic 59–77; PULSE 50–67; RESP 8–20; TEMP 97.2–97.4; O2SAT 93–98
[~2024-10-25] VITALS: Ht 175.3 cm; Wt 72.7 kg
[2024-10-25] MEDS: DOCUMENT DATE & TIME OF BETA-BLOCKER PO ONE (05:30)
[2024-10-25] MEDS: ceFAZolin 2gm/dext,iso 50mL 50 ML IV ONE (05:30)
[~2024-10-25 08:10] MED LIST changes: -IODIXANOL 320 MG/ML INFUS..BTL 100ML IV ONE; -KETOCONAZOLE; +KETOCONAZOLE TOP; -NITR0.4T48; +NITR0.4T48 SL; +nitroPRUSSIDE (NIPRIDE) (200MCG/ML) 100ML Drip IV SCH; +phenylephrine inj 50 MG in normal saline 250ml IV solN IV SCH; +protamine sulfate 10mg/ml inj. ONE
[2024-10-25] MEDS: famotidine 20mg tablet PO ONE (10:34)
[2024-10-25] MEDS: aspirin 325mg tablet PO ONE (10:34)
[2024-10-25] MEDS: ringers solution, lacted 1,000 ML IV SCH ×2 (10:37→10:55)
[2024-10-25] MEDS: VANCOMYCIN/H2O 1.5g/300mL PB 300 ML IV ONE (10:37)
[2024-10-25] MEDS ORDERED: labetalol 20mg/4ml (5mg/ml) syringe IV PRN ×2 (10:55→14:15)
[2024-10-25] MEDS ORDERED: hydrALAZINE 20mg/ml inj. IV PRN ×2 (10:55→14:15)
[2024-10-25] MEDS ORDERED: ondansetron/PF 4mg/2ml inj IV PRN ×2 (10:55→14:15)
[2024-10-25] MEDS ORDERED: HYDROmorphone/PF 0.2 MG/ML SYRINGE IV PRN ×2 (10:55)
[2024-10-25] MEDS ORDERED: meperidine/PF 25mg/ml syringe IV PRN (10:55)
[2024-10-25] MEDS ORDERED: morphine 4 MG/ML inj SYRINge IV PRN (10:55)
[2024-10-25] MEDS ORDERED: proCHLORperazine 10 MG/2 ml inj IV PRN ×2 (10:55→14:15)
[2024-10-25] MEDS ORDERED: LIDOcaine 1% 30ml preserv. free vial ONE (12:45)
[2024-10-25] MEDS ORDERED: heparin 1,000 units/ml 10ml inj ONE (13:15)
[2024-10-25] MEDS ORDERED: fentaNYL/PF 50MCG/1 ML 2ML syringe ONE (13:22)
[2024-10-25] MEDS ORDERED: midazolam 1 mg/ML 2ml injection ONE (13:31)
[2024-10-25] MEDS ORDERED: propofol inj 20 ML IV ONE ×2 (13:31)
[2024-10-25] MEDS ORDERED: magnesium sulf-water 2g/50mL 50 ML IV PRN (14:15)
[2024-10-25] MEDS ORDERED: HYDROcodone/acetaminophen 5mg/325mg tablet PO PRN (14:15)
[2024-10-25] MEDS ORDERED: potassium Cl 40MEQ/1/2NS 520ml 520 ML IV PRN (14:15)
[2024-10-25] MEDS ORDERED: ALPRAZolam 0.25mg tablet PO PRN (14:15)
[2024-10-25] MEDS ORDERED: potassium Cl 40MEQ/270ML bag 250 ML IV PRN (14:15)
[2024-10-25] MEDS ORDERED: docusate sod 100mg capsule PO PRN (14:15)
[2024-10-25] MEDS ORDERED: pantoprazole 40mg Tablet.DR PO PRN (14:15)
[2024-10-25] MEDS: normal saline 1000ml 1,000 ML IV SCH (14:15)
[2024-10-25] MEDS ORDERED: magnesium sulf-water 4G/100mL 100 ML IV PRN (14:15)
[2024-10-25] MEDS ORDERED: potassium Cl 20mEq/100mL bag 100 ML IV PRN (14:15)
[2024-10-25] MEDS ORDERED: diphenhydrAMINE 25mg capsule PO PRN (14:15)
[2024-10-25] MEDS ORDERED: potassium CL 10mEq/100ml bag 100 ML IV PRN (14:15)
[2024-10-25] MEDS ORDERED: potassium Cl 20 mEq SR tablet PO PRN (14:15)
--- NOTE | 2024-10-25 14:19 | OPERATIVE REPORT ---
Operative Report Providers to CC CC: SARAN PRECIADO MD ~ Date of Procedure: Oct 25, 2024 Pre-Operative Diagnosis: Severe Aortic Stenosis Post-Operative Diagnosis SAME as PRE-Op Procedure Performed 1. Ultrasound-guided access, bilateral femoral vessels. 2. Bilateral femoral angiography. 3. Ascending aortography. 4. Temporary transvenous pacer to the RV apex. 5. Placement of a 26 mm Elias S3 Resilia valve. Surgeon: Alex Navarro MD Legal Document Assistant MD Dr. Tyler Headley MD Anesthesiologist: Clint Garcia Type of Anesthesia: Other Findings: Severe Aortic Stenosis Complications None Prosthetics\Implants used: Elias 26mm S3 Resilia Estimated Blood Loss: Minimal Specimen Removed: None Description of Procedure: The patient was brought to the cardiac catheterization technician in a fasting state. They underwent MAC anesthesia. Ultrasound was used to guide access to the bilateral femoral ve ssels, 7-Moroccan sheath, left femoral artery, 6-Moroccan sheath, right femoral artery and left femoral vein. Bilateral femoral angiograms were obtained. Heparin was given to maintain an ACT over 250 seconds. Two crisscross Percloses were placed on the right. We upsized to an 8-Moroccan sheath. Two pigtail catheters placed in the ascending aorta. Ascending aortography done to determine the angle of deployment. Temporary transvenous pacer to the RV apex and confirmed capture. We upsized an 8-Moroccan sheath to a 14-Moroccan Elias eSheath on the right. We crossed the aortic valve using a straight stiff exchange length Terumo wire supported by a 6-Moroccan AL1 catheter. LV AO pressures were recorded. A Bar Saint extra support wire was placed in the left ventricle. A 26mm Elias S3 Resilia valve was brought to position and under rapid right ventricular pacing was deployed. Post-procedure, there was no AI and no residual . Guidewires and balloons were removed at this time. The temporary pacer was removed. The 14-Moroccan Elias eSheath was removed and two crisscross Percloses tied with adequate hemostasis. The arterial sheath on the left was removed and a single Perclose tied. The venous sheath on the left was removed and a single Angioseal used for hemostasis. Protamine was given to reverse the effects of heparin. The patient was stable post-procedure. Good pulses in the legs and no evidence of bleeding, transferred to the PACU in stable condition. HEMODYNAMICS: Pre: LV: 149/10 mmHg LVEDP: 28mmHg Ao: 104/45, MAP 68mmHg Post: LV: 122/7 mmHg LVEDP: 25 mmHg Ao: 117/46, MAP 75mmHg RESULTS: 1. Successful placement of a 26 mm Elias S3 Resilia valve, right transfemoral approach, two perclose devices. ASA 81mg QD 2. CAD: s/p PCI OM 3. Hypertension: Resume if blood pressure remains stable 4. Chronic Diastolic heart failure. LVEDP 28mmHg, pBNP 180 Patient will be watched in the recovery area until stable, then transferred to telemetry at that time. ALEX NAVARRO MD Oct 25, 2024 14:19
[2024-10-25] MEDS: acetaminophen 1,000mg/100ml IV 100 ML IV PRN (14:52)
--- NOTE | 2024-10-25 15:16 | ELECTROCARDIOGRAPH REPORT ---
[facility] Test Date: 2024-10-25 Test Time: 15:11:57 Pat Name: BOLA PHIPPS Department: [facility] Room: [place] [address] Gender: M Clinical Informatics Physician: RADHA : 1945 Requested By: ALEX BROCK Order Number: [id number] Reading MD: Dr. Aime Garcia Measurements Intervals [place] Rate: 61 P: 81 CO: 200 QRS: 81 QRSD: 97 T: 30 QT: 433 QTc: 437 Interpretive Statements Sinus rhythm Consider right atrial enlargement Borderline right axis deviation Probable left ventricular hypertrophy ST elevation, consider anterior injury Electronically Signed On 10-26-2024 8:24:[address] Aime Garcia Please click the below link to view image of tracing.
[2024-10-25] MEDS ORDERED: nitroGLYCERIN 0.4mg SUBLingual tab SL PRN (15:20)
[2024-10-25] MEDS ORDERED: triamcinolone acet 0.1% cream 15gm TP PRN (15:20)
[2024-10-25] MEDS: morphine 2 MG/ML inj. syringe IV PRN (15:41)
[2024-10-25] MEDS: sod chloride 0.9% 10ml flush syringe IV SCH (16:00)
--- NOTE | 2024-10-25 18:43 | CARDIOLOGY REPORT ---
APPROVED REPORT EXAM: Focused, limited intraprocedural transthoracic 2D, spectral and color flow Doppler echocardiogr am during TAVR deployment. Patient Location: CARDIAC EMPLOYMENT REPRESENTATIVE Blood Pressure: 143 /63 mmHg Heart Rate: 56 bpm Rhythm: SINUS BRADYCARDIA Indications SEVERE AORTIC STENOSIS 26mm Elias Angel 3 Ultra RESILIA Bioprosthetic TAVR CAD - STENT X 03/26/15 Supply Coordinator: MD CAESAR / Interventionalist: Vesna Navarro MD and Jaret Vega MD. / Surgeon: Lionel LOPEZ MD / Device rep: Keily Boykin ELS Previous echo: 08/28/24 AD BVC EF: 60-65%; MICHELLE: 0.8; PKV: 4.1; GRAD: 67/38; LVOT2.00; VHD: mMR; Aarti, t rTR LEFT VENTRICLE Normal LV size and function. Moderate concentric hypertrophy. LVEF is 65-70%. RIGHT VENTRICLE RV is normal size and function. ATRIA Left atrium appears at least mildly dilated. AORTIC VALVE Trileaflet AV appears heavily calcified with prominent calcified structure in the LVOT. Significant s tenosis demonstrated by reduced excursion and increased transvalvular and ascending aorta turbulance. MICHELLE is measured at 0.8 cmsq. Peak / mean gradients of 75 / 42mmHG. Peak velocity is measured at 4.3 3m/sec. Trace insufficiency. POST DEPLOYMENT (LOOP:47):26 mm Elias Angel 3 Ultra Resilia bioprosth etic TAVR appears well seated with normal function. Trace paravalvular leak present at 7, 11 o'clock in TTE SAX BASE. MICHELLE is measured at 3.40 cmsq. Peak / mean gradients of 11 / 5 mmHG. Peak velocity is measured at 1.67 m/sec. Poor Doppler angles due to supine positioning and lack of adequate imaging w indows, quantitative data must be clinically correlated. MITRAL VALVE Mild MV annular calcification without stenosis. Trace regurgitation. TRICUSPID VALVE TV appears structurally normal with trace regurgitation. PERICARDIUM Normal pericardium. No effusion.
[2024-10-25] MEDS: ceFAZolin 1GM/D5W- ADD-VANTAGE 50 ML IV SCH (19:00)
[2024-10-25] MEDS: ondansetron/PF 4mg/2ml inj IV PRN (20:01)
[2024-10-25] MEDS: simethicone 80mg chew tab PO ONE (20:10)
[2024-10-25] MEDS: metoprolol tartrate 12.5mg (1/2 tablet) PO SCH (20:13)
[2024-10-25] MEDS: atorvastatin 20mg tablet PO SCH (20:14)
[2024-10-25] MEDS: vancomycin/NS 1 GM ADD-VANTAGE 250 ML IV SCH (20:54)
[2024-10-25] MEDS: SILODOSIN 8 MG PO SCH (21:00)
[2024-10-25] MEDS: acetaminophen 325mg tablet PO PRN (23:41)
[2024-10-26] VITALS (9 sets, daily range): BP systolic 105–147; BP diastolic 50–61; PULSE 54–91; RESP 12–18; TEMP 97.2–97.4; O2SAT 96–98
[2024-10-26] MEDS: OMEGA-3/DHA/EPA/FISH OIL 1 EACH CAPSULE.DR PO SCH (08:00)
[2024-10-26] MEDS: aspirin 81mg tab.chew PO SCH ×2 (08:00→08:30)
[2024-10-26] MEDS: pantoprazole 40mg Tablet.DR PO SCH (08:15)
[2024-10-26 08:37] LABS: BASOPHILS # (AUTO) 0.1 X10'3 (0-0.2); BASOPHILS % (AUTO) 0.5 % (0-1); EOSINOPHILS % (AUTO) 0.4 % (0-6); HEMOGLOBIN 14.6 g/dl (14.0-17.9); LYMPHOCYTES # (AUTO) 1.2 X10'3 (1.1-4.8); LYMPHOCYTES % (AUTO) 12.4 % (21-51); MEAN CORPUSCULAR HEMOGLOBIN 28.1 PG (27.0-31.0); MEAN CORPUSCULAR HGB CONC 33.2 g/dL (33.0-36.5); MEAN CORPUSCULAR VOLUME 84.6 FL (78-98); MEAN PLATELET VOLUME 8.5 FL (7.4-10.4); MONOCYTES # (AUTO) 1.5 X10'3 (0-0.9); MONOCYTES % (AUTO) 14.9 % (2-12); NEUTROPHILS # (AUTO) 7.1 X10'3 (1.8-7.7); NEUTROPHILS % (AUTO) 71.8 % (42-75); PLATELET COUNT 114 X10'3 (140-440); RED BLOOD COUNT 5.21 X10'6 (4.70-6.10); RED CELL DISTRIBUTION WIDTH 13.4 % (11.5-14.5); WHITE BLOOD COUNT 9.8 X10'3 (4.5-11.0)
--- NOTE | 2024-10-26 08:37 | RADIOLOGY REPORT ---
EXAM: DI CHEST,SINGLE VIEW Indication: s/p TAVR Technique: Single frontal view of the chest was obtained Comparison: None FINDINGS: Lines and Tubes: None Lungs: No focal consolidation. Pleura: No effusion. No pneumothorax. Cardiomediastinal contours: Unremarkable. Atherosclerotic vascular calcifications of the thoracic ao rta are noted. Bones: No acute osseous abnormality. IMPRESSION: No acute cardiopulmonary disease.
--- NOTE | 2024-10-26 09:15 | ELECTROCARDIOGRAPH REPORT ---
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 Aime Garcia Measurements Intervals [place] Rate: 58 P: 69 TN: 175 QRS: 71 QRSD: 110 T: 61 QT: 423 QTc: 416 Interpretive Statements Sinus rhythm ST elevation, consider anterior injury vs Esrly repolarizationn Electronically Signed On 10-28-2024 13:06:[address] Aime Garcia Please click the below link to view image of tracing.
[2024-10-26 09:20] LABS: ALANINE AMINOTRANSFERASE 19 U/L (12-78); ALBUMIN/GLOBULIN RATIO 0.9 (1.1-1.5); ALKALINE PHOSPHATASE 69 IU/L (46-116); ANION GAP 7 (8-16); ASPARTATE AMINO TRANSFERASE 21 U/L (10-37); BILIRUBIN,TOTAL 0.7 MG/DL (0.1-1.0); BLOOD UREA NITROGEN 12 MG/DL (7-18); BUN/CREATININE RATIO 13.2 (10.0-20.0); CALCIUM 8.4 MG/DL (8.5-10.1); CHLORIDE 107 MMOL/L (99-107); CREATININE 0.91 MG/DL (0.60-1.10); GLUCOSE 98 MG/DL (70-104); MAGNESIUM 2.3 MG/DL (1.5-2.4); POTASSIUM 3.8 MMOL/L (3.5-5.1); PRO BRAIN NATRIURETIC PEPTIDE 665 PG/ML (0-450); SODIUM 144 MMOL/L (135-145); TOTAL CARBON DIOXIDE 29.7 MMOL/L (24-32); TOTAL PROTEIN 6.5 G/DL (6.4-8.2); eCRCL 64 ML/MIN; eGFR 80 ML/MIN
[2024-10-26] MEDS: docusate sod 100mg capsule PO SCH (09:35)
[2024-10-26] MEDS: cholecalciferol (vitamin D3) 1,000 unit (25mcg) tablet PO SCH (09:36)
[2024-10-26] MEDS: fluticasone nasal spray 16GM bottle NS SCH (09:38)
--- NOTE | 2024-10-26 18:06 | DISCHARGE SUMMARY ---
Discharge Summary Providers to CC ~ Discharge Summary Admission Diagnosis: Severe Aortic Stenosis Hospital Course DATE OF ADMISSION: 10/25/24 DATE OF DISCHARGE: 10/26/24 Discharge Diagnosis\Comment: Severe aortic stenosis status post TAVR Coronary artery disease status post PCI of the OM Hypertension Chronic diastolic heart failure Operations\Procedures: 1. Ultrasound-guided access, bilateral femoral vessels. 2. Bilateral femoral angiography. 3. Ascending aortography. 4. Temporary transvenous pacer to the RV apex. 5. Placement of a 26 mm Elias S3 Resilia valve. Consultants: No consultants Complications: No complications Condition on DC: Stable Continued Medications: Aspirin (Aspirin) 81 Mg Tab.chew 1 TAB PO DAILY for 30 Days, #30 TAB Atorvastatin Calcium (Atorvastatin Calcium) 20 Mg Tablet 1 TAB PO QPM Calcium Phosphate Trib/Vit D3 (Calcium Gummies) 250MG-12.5 Tab.chew 1 EACH PO DAILY, TAB.CHEW Cholecalciferol (Vitamin D3) (Vitamin D3) 25 Mcg (1000 Unit) Capsule 1 CAP PO DAILY for 30 Days, #30 CAP 0 Refills Docusate Sodium (Docusate Sodium) 100 Mg Caps 1 CAP PO DAILY for constipation, CAP 0 Refills Fluticasone Propionate (Flonase) 16 Gm [place].susp 2 SPRAYS BOTHNARES DAILY for 30 Days, #16 GM Nitroglycerin (Nitroglycerin) 0.4 Mg Tab.subl 1 TAB SL PRN PRN for Chest pain Q5min PRNx3-call MDD 3 [place]-3/Dha/Epa/Fish Oil (Fish Oil 1,000 Mg Softgel) 250 Mg-500 Mg-1,000 Mg Capsule 2 EACH PO DAILY, CAP Omeprazole (Omeprazole) 20 Mg Capsule.dr 1 CAP PO Q48H Silodosin (Rapaflo) 8 Mg Capsule 1 CAP PO QPM, CAP Triamcinolone Acetonide 0.1% Crm* (Kenalog 0.1% Crm*) 1 Applic Tube 1 APPLIC TOP DAILY PRN for SCALP ITCH, GM [Vitamin C Gummies] () 250 MG PO DAILY Discontinued Medications: Metoprolol Tartrate (Metoprolol Tartrate) 25 Mg Tablet 0.5 TAB PO BID Discharge Summary: This is an 79-year-old male who presented for planned TAVR. Underwent placement of a 26 mm Elias S3 resilient valve via the right transfemoral approach. He tolerated the procedure well. Monitored overnight in the telemetry unit. Has remained hemodynamically stable. Postoperative testing was reviewed. EKG shows sinus rhythm. Postoperative echocardiogram reveals an LVEF of 65-70%. Elias S3 resilient valve well seated. Trivial perivalvular leak noted. Patient has been up and ambulatory. No complaints of chest pain or pressure. No shortness a breath. No dizziness, lightheadedness or syncope. Femoral cath sites have remained stable. Postoperative testing reviewed with Dr. Mercedez Vega. In agreement with discharge home. Physical exam prior to discharge: General: Awake, alert, oriented. No apparent distress Neck: Supple. Normal range of motion. No JVD Respiratory: Lungs are clear to auscultation bilaterally. No respiratory distress. Chest: Normal shape and size. No accessory muscle use. Cardiovascular: Regular rate and rhythm. S1-S2. No murmur, gallop, rub. Gastrointestinal: Abdomen is soft. Nontender to palpation. Bowel sounds present. Extremities: No lower extremity edema, cyanosis or clubbing. Neurologic: Alert and oriented x4. Nonfocal Psychiatric: Normal mood and affect. Skin: Normal color. Warm and dry. Laboratory Tests Test 10/26/24 08:10 White Blood Count 9.8 X10'3 (4.5-11.0) Red Blood Count 5.21 X10'6 (4.70-6.10) Hemoglobin 14.6 g/dl (14.0-17.9) Hematocrit 44.0 % (42.0-52.0) Mean Corpuscular Volume 84.6 FL (78-98) Mean Corpuscular Hemoglobin 28.1 PG (27.0-31.0) Mean Corpuscular Hemoglobin Concent 33.2 g/dL (33.0-36.5) Red Cell Distribution Width 13.4 % (11.5-14.5) Platelet Count 114 X10'3 (140-440) Mean Platelet Volume 8.5 FL (7.4-10.4) Neutrophils (%) (Auto) 71.8 % (42-75) Lymphocytes (%) (Auto) 12.4 % (21-51) Monocytes (%) (Auto) 14.9 % (2-12) Eosinophils (%) (Auto) 0.4 % (0-6) Basophils (%) (Auto) 0.5 % (0-1) Neutrophils # (Auto) 7.1 X10'3 (1.8-7.7) Lymphocytes # (Auto) 1.2 X10'3 (1.1-4.8) Monocytes # (Auto) 1.5 X10'3 (0-0.9) Eosinophils # (Auto) 0.0 X10'3 (0-0.9) Basophils # (Auto) 0.1 X10'3 (0-0.2) CBC Comment Sodium Level 144 MMOL/L (135-145) Potassium Level 3.8 MMOL/L (3.5-5.1) Chloride Level 107 MMOL/L (99-107) Carbon Dioxide Level 29.7 MMOL/L (24-32) Anion Gap 7 (8-16) Blood Urea Nitrogen 12 MG/DL (7-18) Creatinine 0.91 MG/DL (0.60-1.10) Estimated GFR/1.73 m2 80 ML/MIN BUN/Creatinine Ratio 13.2 (10.0-20.0) Glucose Level 98 MG/DL (70-104) Calcium Level 8.4 MG/DL (8.5-10.1) Magnesium Level 2.3 MG/DL (1.5-2.4) Total Bilirubin 0.7 MG/DL (0.1-1.0) Aspartate Amino Transf (AST/SGOT) 21 U/L (10-37) Alanine Aminotransferase (ALT/SGPT) 19 U/L (12-78) Alkaline Phosphatase 69 IU/L (46-116) Pro-B-Type Natriuretic Peptide 665 PG/ML (0-450) Total Protein 6.5 G/DL (6.4-8.2) Albumin 3.0 G/DL (3.4-5.0) Globulin 3.5 G/DL (2.7-4.3) Albumin/Globulin Ratio 0.9 (1.1-1.5) Chemistry Comments Vital Signs Date Time Temp Pulse Resp B/P (MAP) Pulse Ox O2 Delivery O2 Flow Rate FiO2 10/26/24 12:00 60 14 110/61 (77) 10/26/24 10:00 97 Room Air 10/26/24 06:00 97.2 10/25/24 18:45 0.0 21 Plan: Patient is being discharged home in stable condition. He will follow up as scheduled. Concern for non significant bradycardia. He has not no dizziness or lightheadedness. 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 Ely. Reviewed with Dr. Mercedez Navarro. In agreement with discharge home. *Problems/Diagnosis: (1) Aortic stenosis Status: Chronic (2) Hyperlipidemia Status: Chronic (3) Chronic hypertension Status: Chronic (4) LVH (left ventricular hypertrophy) Status: Chronic (5) CAD (coronary artery disease), [place] coronary artery Status: Chronic (6) Advanced age Status: Chronic (7) Chronic diastolic heart failure Total Time Spent on D/C: > 30 Minutes Counseling Services Smoking & Tobacco Cessation: N/A Supervising MD Co-signing Provider: Vesna Navarro Problem Qualifiers (1) Aortic stenosis: Qualified Codes: I35.0 - Nonrheumatic aortic (valve) stenosis (2) Hyperlipidemia: Qualified Codes: E78.5 - Hyperlipidemia, unspecified (3) CAD (coronary artery disease), [place] coronary artery: TWIN LUIS SHEAR GRINDER OPERATOR HELPER Oct 26, 2024 18:06
--- NOTE | 2024-10-28 03:04 | CARDIOLOGY REPORT ---
APPROVED REPORT EXAM: Limited 2D, Doppler, and color-flow Echocardiogram. Patient Location: 3021 Blood Pressure: 119/55 mmHg Heart Rate: 59 bpm Rhythm: Sinus Bradycardia Indications ONE DAY FOLLOW-UP TAVR 26 mm Elias Angel 3 Ultra RESILIA Bioprosthetic TAVR Candle Molder: BV. Jhoana MD Previous echo 10/25/24 [facility] EF 65-70; MICHELLE 3.4; Peak v 1.67; Grad 03/20 2D Dimensions LVOT Diameter 2.60 (1.8-2.4cm) IVC 13.85 mm Aortic Valve AoV Peak Hong. 237.9 cm/s AoV VTI 50.9 cm AO Peak GR. 22.6 mmHg AO Mean GR. 12 mmHg LVOT VTI 31.94 cm LVOT Peak Hong. 139.2 cm/s MICHELLE(VTI)/BSA 3.34 cm2/m2 MICHELLE (VTI) 3.34 cm2 Mitral Valve MV E Velocity 139.6 cm/s MV Peak Gr. 9 mmHg MV DECEL TIME 268 ms MV A Velocity 128.1 cm/s MV PHT 76 ms E/A Ratio 1.1 MVA (PHT) 2.89 cm2 MV HYcb486.3 cm/s Tricuspid Valve RAP ESTIMATE 10 mmHg LEFT VENTRICLE LV appears normal in size with mild concentric hypertrophy. Overall systolic function appears normal. LVEF is 65-70%. RIGHT VENTRICLE RV appears normal in size and contractility. AORTIC VALVE 26 mm Elias Angel 3 Ultra RESILIA Bioprosthetic TAVR appears well seated. MICHELLE is measured at 3.34 cmsq. Peak / mean gradients of 23/12 mmHG. Peak velocity is measured at 2.38 m/sec. Trivial paravalvu lar leak noted in PLAX TTE. MITRAL VALVE MV is thickened with mild annular calcification and no stenosis. Trace to mild mitral regurgitation. TRICUSPID VALVE The tricuspid valve is normal in structure. Trace tricuspid regurgitation. GREAT VESSELS The IVC is normal in size and collapses >50% with inspiration. PERICARDIUM There is no pericardial effusion. Other Information Study Quality: Adequate Conclusion LV appears normal in size with mild concentric hypertrophy. Overall systolic function appears normal. LVEF is 65-70%. RV appears normal in size and contractility. 26 mm Elias Angel 3 Ultra RESILIA Bioprosthetic TAVR appears well seated. MICHELLE is measured at 3.34 cmsq. Peak / mean gradients of 23/12 mmHG. Peak velocity is measured at 2.38 m/sec. Trivial paraval vular leak noted in PLAX TTE. MV is thickened with mild annular calcification and no stenosis. Trace to mild mitral regurgitation. The tricuspid valve is normal in structure. Trace tricuspid regurgitation. There is no pericardial effusion.
== END 2024-10-26 17:13 | disposition home or self-care (01) | DRG 266 ==
LOC: PAS IN 08:10 → PCU 3S 18:25
PROVIDERS: ADMIT Internal Medicine Cardiovascular Disease; ATTEND Internal Medicine Cardiovascular Disease
PROC: B41D1ZZ Fluoroscopy of Aorta and Bilateral Lower Extremity Arteries using Low Osmolar Contrast (ICD-10-PCS; 2024-10-25)
PROC: 02RF38Z Replacement of Aortic Valve with Zooplastic Tissue, Percutaneous Approach (ICD-10-PCS; principal; 2024-10-25 13:16)
DX: I35.0 Nonrheumatic aortic (valve) stenosis (principal); Z00.6 Encounter for examination for normal comparison and control in clinical research program; I50.33 Acute on chronic diastolic (congestive) heart failure; I11.0 Hypertensive heart disease with heart failure; I25.10 Atherosclerotic heart disease of native coronary artery without angina pectoris; N40.0 Benign prostatic hyperplasia without lower urinary tract symptoms; E78.5 Hyperlipidemia, unspecified; Z87.891 Personal history of nicotine dependence
CPT/HCPCS: 33361; 36415; 71045; 76937; 80053; 81003; 82948; 83735; 83880; 85007; 85025; 85347; 85610; 85730; 86885; 86900; 86901; 86920; 87081; 93005; 93308; A6258; A6449; C1756; C1760; C1769; C1894; G0378; J0131; J0690; J1644; J2003; J2250; J2270; J2371; J2405; J2704; J2720; J3010; J3370; J3372; J3490; J7040; J7050; J7120

== ENCOUNTER 2024-11-09 10:24 | Outpatient (CLI) | payer MEDICARE, OTHER ==
[~2024-11-09 10:24] MED LIST changes: -KETOCONAZOLE TOP; -METO25TA6 PO; +iohexol 350MG/ML 100ml bottle IV ONE; -nitroPRUSSIDE (NIPRIDE) (200MCG/ML) 100ML Drip IV SCH; -phenylephrine inj 50 MG in normal saline 250ml IV solN IV SCH; -protamine sulfate 10mg/ml inj. ONE
--- NOTE | 2024-11-09 21:04 | RADIOLOGY REPORT ---
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 3D image postprocessing was performed on a dedicated workstation and images were used for interpretation and reporting. RADIATION DOSE: Angio: CTDIvol: 17, 14.3 mGy, DLP: 487.43 mGy*cm FINDINGS: CTA neck: 3 vessel aortic arch with minimal atherosclerotic plaque in the left subclavian and brachiocephalic a rtery. The vertebral arteries are symmetric. The posterior circulation is within normal limits. Visualized p ortions of the anterior anterior cerebral, and middle school arteries are within normal limits. There is mixed soft and calcific plaque at the carotid bulb extending into the proximal right externa l and internal carotid arteries. The minimal diameter of the right proximal internal measures 1.8 mm. The carotid artery distally measures 5 mm. There is extensive calcified and non calcified atherosclerotic plaque at the credit bulb extending in to the left proximal internal carotid artery. With string like- severe narrowing at the origin. Mildly emphysema noted at the lung apices. The thyroid gland, parotid glands, and submandibular glan ds are within normal limits. The airways patent. No enlarged cervical lymph nodes. Mild degenerative changes within the spine. IMPRESSION: 1. Approximately 65% stenosis of the right proximal internal carotid artery secondary to mixed athero sclerotic plaque 2. Critical greater than 90% stenosis of the left proximal internal carotid artery secondary to mixed atherosclerotic plaque 3. Emphysema CAROTID STENOSIS REFERENCE Distal internal carotid artery diameter as the denominator for stenosis measurement: MILD = <50% stenosis. MODERATE = 50-69% stenosis. SEVERE = 70-89% stenosis. CRITICAL = 90-99% stenosis. OCCLUDED = 100% stenosis.
== END 2024-11-09 23:59 | disposition home or self-care (01) ==
LOC: RAD 10:24
PROVIDERS: ATTEND Internal Medicine Cardiovascular Disease
DX: I65.23 Occlusion and stenosis of bilateral carotid arteries (principal); J43.8 Other emphysema
CPT/HCPCS: 70498; Q9967